=== PATIENT | female | born 1950 | race Two or more races ===

== ENCOUNTER 2020-07-11 07:41 | Outpatient (CLI) | payer OTHER | END 2020-07-11 15:00 | disposition home or self-care (01) | LOC: LAB 07:41 | PROVIDERS: ATTEND Internal Medicine | DX: I10 Essential (primary) hypertension (principal); M54.5 Low back pain; E78.89 Other lipoprotein metabolism disorders; E55.9 Vitamin D deficiency, unspecified; E66.8 Other obesity; G62.89 Other specified polyneuropathies; F41.8 Other specified anxiety disorders; Z12.11 Encounter for screening for malignant neoplasm of colon; G47.09 Other insomnia ==